=== PATIENT | female | born 2000 | race Caucasian/White ===

== ENCOUNTER 2022-03-12 10:59 | Emergency (ER) | payer OTHER ==
[2022-03-12 11:12] VITALS: BP 127/73
--- OUTSIDE RECORDS SUMMARY | 2022-03-12 11:20 | EXTERNAL MEDICAL SUMMARY RPT | Continuity of Care Document ---
:2000 Author Organization [facility] Address [address] [id number] Phone Allergies No information. Encounters No information. Functional Status No information. Immunizations No information. Medications No information. Problems No information. Procedures date description facility +0000 Visit Code Hold All Results/Labs No information. Social History No information. Vital Signs date measurement value units +0000 BMI BMI 20.04 kg/m2 +0000 BP_diastolic BP_diastolic 83 mm[H g] +0000 BP_systolic BP_systolic 124 mm[Hg] +0000 heart_rate heart_rate 117 /min +0000 height_metric height_metric 165.1 cm +0000 height_standard height_standard 65 in +0000 respiration_rate respiration_rate 18 /min +0000 temperature_metric temperature_metric 37.67 C +0000 temperature_standard temperature_standard 9 9.8 F +0000 weight_metric weight_metric 54.43 kg +0000 weight_standard weight_standard 120 lb
--- NOTE | 2022-03-12 11:49 | XRAY Report ---
PROCEDURE: Elbow 3 View LT INDICATIONS: Trauma TECHNIQUE: 3 views of the elbow were acquired. COMPARISON: None FINDINGS: Bones: No fractures or dislocations. No suspicious bony lesions. Soft tissues: No elbow joint effusion. No suspicious soft tissue calcifications. IMPRESSION: No visualized acute fracture or dislocation. However, occult injury cannot be excluded. Recommend gucci rt interval imaging follow-up in 7-10 days as clinically indicated for additional evaluation. Reviewed by: Ekaterina Topete MD on 03/12/2022 11:48 AM PDT Approved by: Ekaterina Topete MD on 03/12/2022 11:48 AM PDT Station ID: [id number]
--- NOTE | 2022-03-12 12:29 | ED Physician Documentation ---
History of Present Illness - Stated complaint Stated Complaint: RT ELBOW INJ - Chief complaint Chief Complaint: Trauma Ext - Additonal information Additional information: 22-year-old female presents emergency department for evaluation of persistent left medial elbow pain and numbness. Reports that she was running to catch an [employer] about 2 weeks ago and she fell hard directly onto the elbow. She did have an abrasion that has subsequently healed. She reports that the pain is mild but she has an area of persistent numbness just over her medial olecranon. No history of previous injury. Distal sensation and forearm hands and wrist as w ell as movement is preserved. Review of Systems Constitutional: reports: Reviewed and negative Cardiac: reports: Reviewed and negative Respiratory: reports: Reviewed and negative Skin: reports: Abrasion (s) Musculoskeletal: reports: Joint pain Neurologic: reports: Reviewed and negative PD PAST MEDICAL HISTORY - Present Medications Home Medications: Ambulatory Orders Medication Instructions Recorded Confirmed Norgestimate-Ethinyl Estradiol 1 tab PO DAILY 03/12/22 03/12/22 [[id number] Tablet] - Allergies Allergies/Adverse Reactions: Allergies Allergy/AdvReac Type Severity Reaction Status Date / Time No Known Drug Allergies Allergy Verified 03/12/22 11:12 PD ED PE EXPANDED - Extremities Extremities: Left elbow (Healing abrasion seen superior to the left elbow. Normal pronation and supination. Normal distal sensation at wrist hands and fingers. Mild tenderness elicited over the medial olecranon with subjective numbness. Normal flexion and extension) Results - Vitals Vitals: Vital Signs - 24 hr 03/12/22 11:07 Temperature 36.7 C Heart Rate 98 Respiratory 16 Rate Blood Pressure 127/73 O2 Saturation 99 Oxygen O2 Source Room air - Rads (name of study) Left elbow xr Radiology: Final report received (No acute fracture or dislocation) PD MEDICAL DECISION MAKING - ED course Complexity details: considered differential, d/w patient ED course: 21-year-old female presents emergency department for evaluation of left elbow pain. She has some persistent numbness just over the medial olecranon. However movement and function of the elbow is entirely intact. There have been no fevers. An x-ray now 2 weeks postinjury shows no findings to suggest fracture. No effusions. I suspect that the patient has a resolving contusion compressing the ulnar nerve medially that is resolving. We did make a recommendation for patient to consider Tylenol or ibuprofen. She will continue to follow-up with her primary care provider. Emergent return precautions otherwise discussed. Departure - Departure Disposition: 01 Home, Self Care Clinical Impression: Contusion of left elbow Qualifiers: Encounter type: initial encounter Qualified Code(s): S50.02XA - Contusion of left elbow, initial encounter Condition: Stable Record reviewed to determine appropriate education?: Yes Instructions: ED Contusion Elbow Ch Comments: The x-ray of your elbow does not show anything to suggest a fracture. I suspect that you have a contusion or bruising within the joint that is causing a little bit of the pain and some mild numbness. I would expect this to simply resolve over the next few weeks. Return to the emergency department should you have fevers, elbow swelling sudden severe pain or worsening symptoms.
== END 2022-03-12 12:35 | disposition home or self-care (01) ==
LOC: ED 10:59
DX: S50.02XA Contusion of left elbow, initial encounter (principal); W01.0XXA Fall on same level from slipping, tripping and stumbling without subsequent striking against object, initial encounter; Y93.02 Activity, running
CPT/HCPCS: 99282; 99283

== ENCOUNTER 2023-03-22 09:05 | Outpatient (CLI) | payer OTHER ==
[2023-03-22 12:21] LABS: ESTIMATED AVERAGE GLUCOSE 88 mg/dL (70-100); HEMOGLOBIN A1c% 4.7 % (4.27-6.07)
[2023-03-22 12:49] LABS: CALCIUM 9.5 mg/dL (8.5-10.3); CREATININE 0.7 mg/dL (0.6-1.3); THYROID STIMULATING HORMONE 1.23 uIU/mL (0.34-5.60)
== END 2023-03-22 09:06 | disposition home or self-care (01) ==
LOC: LAB.N 09:05
PROVIDERS: ATTEND Family Medicine
DX: L50.9 Urticaria, unspecified (principal); F41.9 Anxiety disorder, unspecified; R06.00 Dyspnea, unspecified; Z83.3 Family history of diabetes mellitus; G43.009 Migraine without aura, not intractable, without status migrainosus
CPT/HCPCS: 36415; 80048; 83036; 84443